=== PATIENT | male | born 1980 | race Two or more races ===

== ENCOUNTER 2016-09-03 00:56 | Emergency (ER) | payer OTHER ==
[~2016-09-03] VITALS: Ht 177.8 cm; Wt 95.3 kg
[2016-09-03] MEDS ORDERED: OMEPRAZOLE20 MG (01:16)
[2016-09-03] MEDS ORDERED: ALBUTEROL SULFATE 2.5 MG/3 ML NEBU NEB ONE (01:30)
[2016-09-03] MEDS ORDERED: predniSONE 10 MG TABLET PO ONE (01:30)
[2016-09-03] MEDS ORDERED: IPRATROPIUM BROMIDE 0.5 MG/2.5 ML NEBU NEB ONE (01:30)
[2016-09-03] MEDS ORDERED: predniSONE 10 MG TABLET ONE (01:32)
[2016-09-03] MEDS ORDERED: predniSONE 50 MG TABLET ONE (01:32)
[2016-09-03] MEDS ORDERED: ALBUTEROL SULFATE 2.5 MG/3 ML NEBU ONE (01:37)
[2016-09-03] MEDS ORDERED: IPRATROPIUM BROMIDE 0.5 MG/2.5 ML NEBU ONE (01:37)
--- NOTE | 2016-09-03 02:01 | NUR ---
Patient discharged to home in stable conditon. Written and verbal after care instructions given. Patient verbalizes understanding of instructions.
== END 2016-09-03 02:04 | disposition home or self-care (01) ==
LOC: ER 01:05
DX: J98.01 Acute bronchospasm (principal); J20.9 Acute bronchitis, unspecified; F17.200 Nicotine dependence, unspecified, uncomplicated
CPT/HCPCS: 71010; 94640; 99283; 99406; A4663; J3590; J7512 ×2

== ENCOUNTER 2017-06-23 14:50 | Emergency (ER) | payer SELFPAY ==
[~2017-06-23] VITALS: Ht 175.3 cm; Wt 95.3 kg
[~2017-06-23 14:50] MED LIST: OMEP20CA10
[2017-06-23 15:27] LABS: *BILIRUBIN,URIN NEGATIVE (NEGATIVE); *BLOOD, URINE Trace-intact (NEGATIVE); *CLARITY,URINE CLEAR (CLEAR); *COLOR,URINE YELLOW (YELLOW); *KETONES,URINE NEGATIVE (NEGATIVE); *PROTEIN,URINE NEGATIVE (NEGATIVE); *UROBILINOGEN,URINE 0.2 E.U./dl (NORMAL); LEUKOCYTE ESTERASE ,URINE NEGATIVE (NEGATIVE); NITRITE, URINE NEGATIVE (NEGATIVE); UGLUCOSE NEGATIVE (NEGATIVE)
[2017-06-23 15:33] LABS: BACTERIA,URINE NONE SEEN /HPF (NONE SEEN); RBC,URINE 0-3 /HPF (0-3); SQUAMOUS EPITHELIAL CELL,UR FEW /HPF (NONE SEEN); WBC,URINE 0-3 /HPF (0-3)
[2017-06-23] MEDS ORDERED: KETOROLAC TROMETHAMINE 60 MG INJ IM ONE ×2 (15:44→15:47)
--- NOTE | 2017-06-23 16:00 | NUR ---
mse completed, pt d/c'd home, aci/rx given. pt also had sling placed. pt took all belongings, ambuklated w/o diff.
== END 2017-06-23 16:34 | disposition home or self-care (01) ==
LOC: ER 14:50
DX: S56.912A Strain of unspecified muscles, fascia and tendons at forearm level, left arm, initial encounter (principal); M62.830 Muscle spasm of back; F17.210 Nicotine dependence, cigarettes, uncomplicated; Z79.899 Other long term (current) drug therapy; X50.0XXA Overexertion from strenuous movement or load, initial encounter; Y93.89 Activity, other specified; Y92.89 Other specified places as the place of occurrence of the external cause; Y99.8 Other external cause status
CPT/HCPCS: A4663; J1885